=== PATIENT | female | born 1995 | race Caucasian/White ===

== ENCOUNTER 2018-02-22 11:08 | Inpatient (IN) | payer OTHER ==
[2018-02-22] MEDS ORDERED: VANCOMYCIN HCL INJ 1000 MG VIAL IV ONE (11:55)
--- NOTE | 2018-02-22 11:58 | ER Document Report ---
ED Medical Screen (RME) - General Chief Complaint: Hand Swelling Stated Complaint: HAND SWELLING/PAIN Time Seen by Provider: 02/22/18 11:55 Mode of Arrival: Ambulatory Information source: Patient Notes: 23-year-old female presents with left hand pain after injecting Suboxone into her wrist last night. I have greeted and performed a rapid initial assessment of this patient. A comprehensive ED assessment and evaluation of the patient, analysis of test results and completion of the medical decision making process will be conducted by additional ED providers. PHYSICAL EXAMINATION: GENERAL: Well-appearing, well-nourished and in no acute distress. HEAD: Atraumatic, normocephalic. EYES: Pupils equal round extraocular movements intact, conjunctiva are normal. ENT: Nares patent NECK: Normal range of motion LUNGS: No respiratory distress NEUROLOGICAL: Normal speech, normal gait. PSYCH: Normal mood, normal affect. SKIN: Left hand is dusky in appearance extensive ecchymosis of the hand itself patient does have pulses her hands are both noted to be cold TRAVEL OUTSIDE OF THE [place] IN LAST 30 DAYS: No - Related Data Allergies/Adverse Reactions: Penicillins Allergy (Verified 02/22/18 11:10) Sulfa (Sulfonamide Antibiotics) Allergy (Verified 02/22/18 11:10) Physical Exam - Vital signs Vitals: Temp Pulse Resp BP Pulse Ox 98.8 F 60 16 121/81 97 02/22/18 11:28 02/22/18 11:28 02/22/18 11:28 02/22/18 11:28 02/22/18 11:28 Course - Vital Signs Vital signs: Temp Pulse Resp BP Pulse Ox 98.8 F 60 16 121/81 97 02/22/18 11:28 02/22/18 11:28 02/22/18 11:28 02/22/18 11:28 02/22/18 11:28
--- NOTE | 2018-02-22 12:27 | ER Document Report ---
ED General - General Chief Complaint: Hand Swelling Stated Complaint: HAND SWELLING/PAIN Time Seen by Provider: 02/22/18 11:55 Mode of Arrival: Ambulatory TRAVEL OUTSIDE OF THE [place] IN LAST 30 DAYS: No - HPI Notes: 23-year-old female presents the ED with complaints of left hand swelling, pain, coolness to touch times after she injected herself with IV Suboxone last night. - Related Data Allergies/Adverse Reactions: Penicillins Allergy (Verified 02/22/18 11:10) Sulfa (Sulfonamide Antibiotics) Allergy (Verified 02/22/18 11:10) Past Medical History - General Information source: Patient - Social History Smoking Status: Current Every Day Smoker Chew tobacco use (# tins/day): No Frequency of alcohol use: None Drug Abuse: None Family History: Reviewed & Not Pertinent Patient has suicidal ideation: No Patient has homicidal ideation: No Renal/ Medical History: Denies: Hx Peritoneal Dialysis Review of Systems - Review of Systems Constitutional: No symptoms reported EENT: No symptoms reported Cardiovascular: No symptoms reported Respiratory: No symptoms reported Gastrointestinal: No symptoms reported Genitourinary: No symptoms reported Female Genitourinary: No symptoms reported Musculoskeletal: No symptoms reported Skin: See HPI Hematologic/Lymphatic: No symptoms reported Neurological/Psychological: No symptoms reported Physical Exam - Vital signs Vitals: Temp Pulse Resp BP Pulse Ox 98.8 F 60 16 121/81 97 02/22/18 11:28 02/22/18 11:28 02/22/18 11:28 02/22/18 11:28 02/22/18 11:28 - Notes Notes: PHYSICAL EXAMINATION: GENERAL: Well-appearing, well-nourished and in no acute distress. HEAD: Atraumatic, normocephalic. EYES: Pupils equal round and reactive to light, extraocular movements intact, conjunctiva are normal. ENT: Nares patent, oropharynx clear without exudates. Moist mucous membranes. NECK: Normal range of motion, supple without lymphadenopathy LUNGS: Breath sounds clear to auscultation bilaterally and equal. No wheezes rales or rhonchi. HEART: Regular rate and rhythm without murmurs ABDOMEN: Soft, nontender, nondistended abdomen. No guarding, no rebound. No masses appreciated. Female : deferred Musculoskeletal: Normal range of motion, no pitting or edema. No cyanosis. noted pain with flexion, extension, abduction, adduction of digit #1-5. Full motor and sensory function in NATAN. Commercial Lender left hand +1. [employer] Right hand +2. Strength 3/5 on leftUE, 5/5 on rightUE. No deformity noted of hand or wrist bilaterally. Normal flexion, extension, ulnar/radial deviation. No open wounds or drainage from wrist. Noted dusky color in left hand, +kanavel's sign in digits in left hand, right hand negative. full motor and sensory function with medial, radial and ulnar nerves bilaterally and equally. NEUROLOGICAL: Cranial nerves grossly intact. Normal speech, normal gait. Normal sensory, motor exams PSYCH: Normal mood, normal affect. SKIN: Warm, Dry, normal turgor, no rashes or lesions noted. Course - Re-evaluation Re-evalutation: 02/22/18 16:34 23-year-old female who having severe left hand pain and swelling who is afebrile , vitals stable in moderate distress presents for evaluation, angiogram ruled out blood clot, no vascular compromise. Patient given broad-spectrum antibiotics due to severe pain, hand swelling, use of IV drug use into affected hand. CBC negative for leukocytosis, CMP negative for hepatic or renal deficiency, no electrolyte disturbances. Patient does have pain with passive extension of fingers on left side, concern of left hand tenosynovitis. Consulted Dr.'s Warren Chan, portfolio specialist on-call at 1545 regarding for bedside consult, states he will consult with hospital admission. Spoke with Dr. David Gamez, hospitalist for admitted for left hand cellulitis with suspicion for left handed tenosynovitis. All questions and concerns answered by this provider with patient. - Vital Signs Vital signs: Temp Pulse Resp BP Pulse Ox 98.8 F 60 17 145/85 H 100 02/22/18 11:28 02/22/18 11:28 02/22/18 14:39 02/22/18 14:39 02/22/18 14:39 - Laboratory Result Diagrams: 02/22/18 14:34 02/22/18 14:34 Laboratory results interpreted by me: 02/22/18 02/22/18 14:34 14:34 Seg Neutrophils % 78.5 H Carbon Dioxide 31 H BUN 6 L AST 37 H Discharge - Discharge Clinical Impression: Cellulitis of left hand, Tenosynovitis of left hand Condition: Stable Disposition: ADMITTED INPATIENT Admitting Provider: Hospitalist - Dr. David Gamez Unit Admitted: Medical Floor
--- NOTE | 2018-02-22 14:40 | RADIOLOGY REPORT (SQ) ---
EXAM DESCRIPTION: ARTERIAL UPPER EXTREM UNILAT COMPLETED DATE/TIME: 02/22/2018 2:11 pm REASON FOR STUDY: left hand pale, pulseless and cold to touch COMPARISON: None. TECHNIQUE: Dynamic and static bedolla scale and color images acquired of the left upper extremity arter ies. Additional selected spectral images recorded. Images saved to PACS. LIMITATIONS: None. FINDINGS: LEFT UPPER EXTREMITY: SUBCLAVIAN: Normal Doppler waveforms. No velocity elevation to suggest stenosis. AXILLARY: Normal Doppler waveforms. No velocity elevation to suggest stenosis. Normal color Doppler evaluation. BRACHIAL: Normal Doppler waveforms. No velocity elevation to suggest stenosis. Normal color Doppler evaluation. RADIAL: Normal Doppler waveforms. No velocity elevation to suggest stenosis. Normal color Doppler e valuation. ULNAR: Normal Doppler waveforms. No velocity elevation to suggest stenosis. Normal color Doppler ev aluation. OTHER: No other significant finding. IMPRESSION: NORMAL LEFT UPPER EXTREMITY ARTERIAL DOPPLER. TECHNICAL DOCUMENTATION: JOB ID: [id number] [employer]- All Rights Reserved Reading location - IP/workstation name: [email or web address]
[2018-02-22 15:09] LABS: ABSOLUTE LYMPHOCYTES (AUTO) 0.9 10^3/uL (0.5-4.7); ABSOLUTE MONOCYTES (AUTO) 0.2 10^3/uL (0.1-1.4); ABSOLUTE NEUT (AUTO) 4.3 10^3/uL (1.7-8.2); BASOPHILS % (AUTO) 0.2 % (0-2); EOSINOPHILS % (AUTO) 0.2 % (0-6); HEMATOCRIT 38.4 % (36.0-47.0); HEMOGLOBIN 13.4 g/dL (12.0-15.5); LYMPHOCYTES % (AUTO) 17.2 % (13-45); MEAN CORPUSCULAR HEMOGLOBIN 31.3 pg (27.0-33.4); MEAN CORPUSCULAR VOLUME 90 fl (80-97); MONOCYTES % (AUTO) 3.9 % (3-13); PLATELET COUNT 218 10^3/uL (150-450); RED BLOOD COUNT 4.29 10^6/uL (3.72-5.28); SEGMENTED NEUTROPHILS % (AUTO) 78.5 % (42-78); TOTAL CELLS COUNTED % (AUTO) 100 %; WHITE BLOOD COUNT 5.4 10^3/uL (4.0-10.5)
[2018-02-22 15:27] LABS: ALANINE AMINOTRANSFERASE 21 U/L (9-52); ALBUMIN 4.5 g/dL (3.5-5.0); ALKALINE PHOSPHATASE 64 U/L (38-126); ANION GAP 9 (5-19); ASPARTATE AMINO TRANSFERASE 37 U/L (14-36); BILIRUBIN,DIRECT 0.3 mg/dL (0.0-0.4); BILIRUBIN,TOTAL 0.7 mg/dL (0.2-1.3); BLOOD UREA NITROGEN 6 mg/dL (7-20); CALCIUM 9.5 mg/dL (8.4-10.2); CARBON DIOXIDE 31 mmol/L (22-30); CHLORIDE 104 mmol/L (98-107); GLUCOSE 101 mg/dL (75-110); POTASSIUM 3.8 mmol/L (3.6-5.0); SODIUM 143.5 mmol/L (137-145); TOTAL PROTEIN 7.8 g/dL (6.3-8.2)
[2018-02-22] MEDS ORDERED: CIPROFLOXACIN HCL 500 MG TABLET PO ONE (15:32)
--- NOTE | 2018-02-22 15:51 | RADIOLOGY REPORT (SQ) ---
EXAM DESCRIPTION: HAND LEFT 3 VIEWS COMPLETED DATE/TIME: 02/22/2018 3:24 pm REASON FOR STUDY: s/p IV injection COMPARISON: None. EXAM PARAMETERS: NUMBER OF VIEWS: Three views. TECHNIQUE: AP, lateral and oblique radiographic images acquired of the left hand. LIMITATIONS: None. FINDINGS: MINERALIZATION: Normal. BONES: No acute fracture or dislocation. No worrisome bone lesions. JOINTS: No effusions. SOFT TISSUES: Dorsal soft tissue swelling. OTHER: No other significant finding. IMPRESSION: NEGATIVE STUDY OF THE LEFT HAND. NO RADIOGRAPHIC EVIDENCE OF ACUTE INJURY. TECHNICAL DOCUMENTATION: JOB ID: [id number] [employer]- All Rights Reserved Reading location - IP/workstation name: [email or web address]
[2018-02-22] MEDS ORDERED: KETOROLAC TROMETHAMINE INJ/PF 30 MG/1 ML SDV IV ONE (16:33)
--- NOTE | 2018-02-22 16:45 | PDOC H&P ---
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 This was 2-3 days ago. She began to experience pain and swelling in her left hand. She has not had any fevers. She has not noticed any redness or streaking, but she has noted some purplish discoloration looked like bruises on her fingers of her left hand and on her left wrist at the site of injection. She said it hurts to move her left thumb. Past Medical History Medical History: None Past Surgical History Past Surgical History: Reports: None Social History Smoking Status: Current Every Day Smoker Hx Recreational Drug Use: Yes - Former IV drug user Family History Family History: Reviewed & Not Pertinent Parental Family History Reviewed: No - Noncontributory Children Family History Reviewed: NA Sibling(s) Family History Reviewed.: NA - Noncontributory noncontributory Medication/Allergy Home Medications: Buprenorphine HCl [Subutex 8 mg Sublingual Tablet] 8 mg SL BID 02/22/18 Allergies/Adverse Reactions: Penicillins Allergy (Verified 02/22/18 11:10) Sulfa (Sulfonamide Antibiotics) Allergy (Verified 02/22/18 11:10) Review of Systems All systems: reviewed and no additional remarkable complaints except as stated - 10 point review of systems was conducted with the patient was negative except as noted above in the HPI Physical Exam Vital Signs: Temp Pulse Resp BP Pulse Ox 98.8 F 60 17 145/85 H 100 02/22/18 11:28 02/22/18 11:28 02/22/18 14:39 02/22/18 14:39 02/22/18 14:39 Intake & Output 02/21/18 02/22/18 02/23/18 06:59 06:59 06:59 Weight 62.3 kg General appearance: PRESENT: no acute distress, well-developed, well-nourished Head exam: PRESENT: atraumatic, normocephalic Eye exam: PRESENT: conjunctiva pink, EOMI, PERRLA. ABSENT: scleral icterus Ear exam: PRESENT: normal external ear exam Mouth exam: PRESENT: moist, neck supple, tongue midline Throat exam: ABSENT: post pharyngeal erythema, tonsillar erythema, tonsillar exudate, tonsillogmegaly Neck exam: ABSENT: carotid bruit, JVD, lymphadenopathy, thyromegaly Respiratory exam: PRESENT: clear to auscultation miguel. ABSENT: rales, rhonchi, wheezes Cardiovascular exam: PRESENT: RRR. ABSENT: diastolic murmur, rubs, systolic murmur Vascular exam: PRESENT: normal capillary refill GI/Abdominal exam: PRESENT: normal bowel sounds, soft. ABSENT: distended, guarding, mass, organolmegaly, rebound, tenderness Rectal exam: PRESENT: deferred Extremities exam: PRESENT: clubbing, full ROM, other - There are 2 track wilkinson on her left wrist on the radial side at the base of her thumb. She has some swelling in the left hand. There is no substantial erythema but there looks to be bruising in the fingertips and around the injection site on the left wrist. When her left thumb is passively extended it causes pain down her left wrist. This is not reproduced on extension of the left thumb. She displays no similar sensation with passive flexion or extensive of the other 4 digits of her left hand. There is no warmth or induration visible or palpable on the left hand. Musculoskeletal exam: PRESENT: ambulatory, tenderness - Left wrist as noted above. ABSENT: deformity Neurological exam: PRESENT: alert, awake, oriented to person, oriented to place , oriented to time, CN II-XII grossly intact Psychiatric exam: PRESENT: depressed, flat affect Results Laboratory Results: 02/22/18 14:34 02/22/18 14:34 02/22/18 02/22/18 14:34 14:34 WBC 5.4 RBC 4.29 Hgb 13.4 Hct 38.4 MCV 90 MCH 31.3 MCHC 35.0 RDW 13.0 Plt Count 218 Seg Neutrophils % 78.5 H Lymphocytes % 17.2 Monocytes % 3.9 Eosinophils % 0.2 Basophils % 0.2 Absolute Neutrophils 4.3 Absolute Lymphocytes 0.9 Absolute Monocytes 0.2 Absolute Eosinophils 0.0 Absolute Basophils 0.0 Sodium 143.5 Potassium 3.8 Chloride 104 Carbon Dioxide 31 H Anion Gap 9 BUN 6 L Creatinine 0.52 Est GFR ( Amer) > 60 Est GFR (Non-Af Amer) > 60 Glucose 101 Calcium 9.5 Total Bilirubin 0.7 AST 37 H ALT 21 Alkaline Phosphatase 64 Total Protein 7.8 Albumin 4.5 Impressions: Upper Extremity Ultrasound 02/22/18 12:12 IMPRESSION: NORMAL LEFT UPPER EXTREMITY ARTERIAL DOPPLER. Hand X-Ray 02/22/18 14:31 IMPRESSION: NEGATIVE STUDY OF THE LEFT HAND. NO RADIOGRAPHIC EVIDENCE OF ACUTE INJURY. Assessment & Plan - Diagnosis (1) Flexor tenosynovitis of thumb Is this a current diagnosis for this admission?: Yes Plan: We will start her on some IV vancomycin. Blood cultures are pending. Orthopedics was consulted in the emergency department and will see the patient in consultation. I am getting an MRI of the left upper extremity to assess for evidence of inflammation or phlegmon around the thumb flexor tendon on the left. - Time Time Spent: 50 to 70 Minutes Smoking Cessation Education: 3 to 10 minutes Medications reviewed and adjusted accordingly: Yes - Inpatient Certification Medical Necessity: Need for IV Antibiotics, Risk of Complication if Not Cared For in Hospital
[2018-02-22 17:19] VITALS: BP 158/88
--- NOTE | 2018-02-22 17:59 | PDOC CONSULTATION ---
Consultation Consult Date: 02/22/18 Consult reason:: Left hand discoloration and pain History of Present Illness Admission Date/PCP: 02/22/18 16:46 History of Present Illness: ANNAMARIE CHAUDHARY is a 23 year old female who self injected suboxone through a left radiocarpal vein 2-3 days ago. She presents the emergency room with increasing discoloration of the hand as well as pain and decreased function. Orthopedics is consulted for potential flexor tenosynovitis Past Medical History Medical History: None Past Surgical History Past Surgical History: Reports: None Social History Information Source: Patient, [facility] Smoking Status: Current Every Day Smoker Hx Recreational Drug Use: Yes - Former IV drug user Family History Family History: Reviewed & Not Pertinent Parental Family History Reviewed: No Children Family History Reviewed: No Sibling(s) Family History Reviewed.: No Medication/Allergy Home Medications: Buprenorphine HCl [Subutex 8 mg Sublingual Tablet] 8 mg SL BID 02/22/18 Allergies/Adverse Reactions: Penicillins Allergy (Verified 02/22/18 11:10) Sulfa (Sulfonamide Antibiotics) Allergy (Verified 02/22/18 11:10) Review of Systems All systems: as per [facility] Physical Exam Vital Signs: Temp Pulse Resp BP Pulse Ox 37.1 C 60 11 L 158/88 H 100 02/22/18 11:28 02/22/18 11:28 02/22/18 17:01 02/22/18 17:01 02/22/18 17:01 Physical Exam: The patient is a thin adult white female, somewhat unkempt appearance and in minor to moderate distress. General appearance: PRESENT: mild distress, thin Head exam: PRESENT: normocephalic Respiratory exam: PRESENT: unlabored Cardiovascular exam: PRESENT: RRR Pulses: PRESENT: normal radial pulses Vascular exam: PRESENT: normal capillary refill GI/Abdominal exam: PRESENT: soft Rectal exam: PRESENT: deferred Extremities exam: PRESENT: other - The injection site is covered with eschar and has a small amount of surrounding erythema but no drainage. There is also some eschar over the dorsal thenar eminence. The skin at the MCP joints as well as the PIP and DIP joints has some erythematous/purplish discoloration and potentially some increased soft tissue induration but not consistent with a clinical cellulitis. There is passive range of motion of the digits which the patient says has improved since she arrived at the emergency room. There is brisk capillary refill. Sensory examination is intact to light touch. Neurological exam: PRESENT: alert, awake, oriented to person, oriented to place , oriented to time, oriented to situation. ABSENT: motor sensory deficit Psychiatric exam: PRESENT: agitated, anxious Skin exam: PRESENT: mottled Results Impressions: Upper Extremity Ultrasound 02/22/18 12:12 IMPRESSION: NORMAL LEFT UPPER EXTREMITY ARTERIAL DOPPLER. Hand X-Ray 02/22/18 14:31 IMPRESSION: NEGATIVE STUDY OF THE LEFT HAND. NO RADIOGRAPHIC EVIDENCE OF ACUTE INJURY. Status: Imported from PACS Assessment & Plan - Diagnosis (1) Intravenous drug abuse Is this a current diagnosis for this admission?: Yes Plan: 23-year-old white female now 2-3 days status post Suboxone injection into the left radiocarpal region. At this point I think the patient has neither a flexor Shantel synovitis nor cellulitis. I think she has a reaction to the injection that involves soft tissue induration as well as some discoloration. I think this can be observed. - Time Time Spent: 50 to 70 Minutes Anticipated discharge: Other Within: Other
[2018-02-22] MEDS ORDERED: ENOXAPARIN SODIUM INJ 40 MG/0.4 ML DISP.SYRIN SUBCUT ONE (18:30)
[2018-02-23] MEDS ORDERED: ENOXAPARIN SODIUM INJ 40 MG/0.4 ML DISP.SYRIN SUBCUT SCH (10:00)
== END 2018-02-22 18:11 | disposition left against medical advice (07) | DRG 558 ==
LOC: ER 11:08 → EH 16:46
PROVIDERS: ADMIT Internal Medicine; ATTEND Internal Medicine
DX: M65.842 Other synovitis and tenosynovitis, left hand (principal); F19.10 Other psychoactive substance abuse, uncomplicated; F32.9 Major depressive disorder, single episode, unspecified; F17.210 Nicotine dependence, cigarettes, uncomplicated; Z79.899 Other long term (current) drug therapy; Z88.0 Allergy status to penicillin; Z88.2 Allergy status to sulfonamides
CPT/HCPCS: 36415; 80053; 83605; 85025; 87040; 93931; 96365; 96366; 99285; J1885; J3370